=== PATIENT | male | born 1960 | race Caucasian/White ===

== ENCOUNTER 2019-07-13 11:07 | Emergency (ER) | payer OTHER ==
[~2019-07-13] VITALS: Ht 185.4 cm; Wt 86.2 kg
[~2019-07-13 11:07] MED LIST: CYCL10 PO; OXYACE5T PO
[2019-07-13] MEDS ORDERED: NEURONTIN300 MG PO (13:39)
[2019-07-13] MEDS ORDERED: OXYC10TA19 PO (13:39)
[2019-07-13] MEDS ORDERED: TRAZ150T57 PO (13:39)
[2019-07-13] MEDS ORDERED: LOVASTATIN20 MG PO (13:39)
== END 2019-07-13 14:11 | disposition home or self-care (01) ==
LOC: ER 11:07
DX: S82.202A Unspecified fracture of shaft of left tibia, initial encounter for closed fracture (principal); S82.442A Displaced spiral fracture of shaft of left fibula, initial encounter for closed fracture; F17.200 Nicotine dependence, unspecified, uncomplicated; W01.0XXA Fall on same level from slipping, tripping and stumbling without subsequent striking against object, initial encounter
CPT/HCPCS: 29505; 73610; 99283-25

== ENCOUNTER 2022-05-17 09:23 | Day surgery (SDC) | payer OTHER ==
[~2022-05-17] VITALS: Ht 185.4 cm; Wt 88.6 kg
[2022-05-17] VITALS (19 sets, daily range): BP systolic 112–155; BP diastolic 61–76
[~2022-05-17 09:23] MED LIST changes: +LOVASTATIN20 MG PO; +NEURONTIN300 MG PO; +OXYC10TA19 PO; +TRAZ150T57 PO
[2022-05-17] MEDS ORDERED: CALCIUM 600 MG1 EA18 PO (09:36)
[2022-05-17] MEDS ORDERED: MULVITA PO (09:37)
[2022-05-17] MEDS ORDERED: ASPI81CH PO (09:37)
--- NOTE | 2022-05-17 10:10 | NUR ---
1 MISSED ATTEMPT BY TAPPER SUPERVISOR CHUY CAZARES
--- NOTE | 2022-05-20 13:53 | NUR ---
05/20/22 1353 Kirk Carlos HISTORY, CHART, MEDICATIONS AND ALLERGIES REVIEWED BEFORE START OF PROCEDURE. PATIENT CONFIRMS NPO STATUS AND AGREES WITH SCHEDULED PROCEDURE. 3-LEAD EKG REVIEWED WITH PHYSICIAN PRIOR TO START OF PROCEDURE. MONITOR INTACT WITH CONTINUOUS PULSE OXIMETRY,CAPNOGRAPHY, 3-LEAD EKG, INTERMITTENT BP. SUPPLEMENTAL O2 TO BE TITRATED THROUGHOUT PROCEDURE TO MAINTAIN O2 SATURATION ABOVE 90%. PATIENT DETERMINED TO BE ASA APPROPRIATE FOR PROPOFOL SEDATION PRIOR TO START OF PROCEDURE BY EDIT: SIMEON
== END 2022-05-17 11:18 | disposition home or self-care (01) ==
LOC: ORSCMMR 09:23 → ORD 10:00 → ORSCMMR 11:18
PROVIDERS: Internal Medicine Gastroenterology
PROC: 0DBL8ZX Excision of Transverse Colon, Via Natural or Artificial Opening Endoscopic, Diagnostic (ICD-10-PCS; principal; 2022-05-17 10:00)
PROC: 0DBH8ZX Excision of Cecum, Via Natural or Artificial Opening Endoscopic, Diagnostic (ICD-10-PCS; principal; 2022-05-17 10:00)
PROC: 0DBM8ZX Excision of Descending Colon, Via Natural or Artificial Opening Endoscopic, Diagnostic (ICD-10-PCS; principal; 2022-05-17 10:00)
DX: Z12.11 Encounter for screening for malignant neoplasm of colon (principal); D12.4 Benign neoplasm of descending colon; D12.0 Benign neoplasm of cecum; K63.5 Polyp of colon; J44.9 Chronic obstructive pulmonary disease, unspecified; F17.210 Nicotine dependence, cigarettes, uncomplicated; Z79.899 Other long term (current) drug therapy; Z79.82 Long term (current) use of aspirin
CPT/HCPCS: 88305; J2704; J7120